=== PATIENT | male | born 1980 | race Caucasian/White ===

== ENCOUNTER 2022-10-14 08:54 | Emergency (ER) | payer OTHER ==
[~2022-10-14] VITALS: Ht 182.9 cm; Wt 143.3 kg
--- OUTSIDE RECORDS SUMMARY | ~2022-10-14 | XMS | Continuity of Care Document ---
Demographics + + + | Address | [address] | | | [place] [address] | + + + | Preferred Language | Unknown | + + + | Marital Status | Never | + + + | Holiness Affiliation | Unknown | + + + | Race | White | + + + | Ethnic Group | Unknown | + + + Author + + + | Author | [facility] | + + + | Organization | [facility] | + + + | Address | [address] | | | [place] [address] | + + + | Phone | | + + + Care Team Providers + + + + | Care Price Clerk Name | Role | Phone | + + + + Unavailable | Unavailable | + + + + Allergies No information. Encounters No information. Functional Status No information. Immunizations No information. Medications No information. Problems + + + + | date | description | facility | + + + + | 2022-08-13 11:14 | TYPE 1 DIABETES MELLITUS | [facility] | | | WITH HYPERGLYCEMIA | | + + + + | 2022-08-13 11:14 | OTHER SPECIFIED | [facility] | | | POLYNEUROPATHIES | | + + + + | 2022-09-03 07:49 | FATTY (CHANGE OF) LIVER, | [facility] | | | NOT ELSEWHERE CLASSIFIED | | + + + + | 2022-09-03 07:49 | HEPATOMEGALY, NOT | [facility] | | | ELSEWHERE CLASSIFIED | | + + + + | 2022-09-03 07:49 | ABN FINDINGS ON DX IMAGING | [facility] | | | [facility] | | + + + + | 2022-09-03 08:00 | ABN FINDINGS ON DX IMAGING | [facility] | | | [facility] | | + + + + Procedures No information. Results/Labs No information. Social History No information. Vital Signs No information."
[2022-10-14] MEDS ORDERED: PRAVASTATIN SOD40 MG PO (09:06)
[2022-10-14] MEDS ORDERED: TRESIBA FL200 UNIT/1 SUB-Q (09:07)
[2022-10-14] MEDS ORDERED: NOVOLOG100 UNIT/2 SUB-Q (09:08)
[2022-10-14] MEDS ORDERED: LYRICA50 MG PO (09:10)
[2022-10-14 09:16] VITALS: BP 115/86
== END 2022-10-14 09:17 | disposition home or self-care (01) ==
LOC: ED 08:54
DX: E10.42 Type 1 diabetes mellitus with diabetic polyneuropathy (principal)
CPT/HCPCS: 99281